=== PATIENT | male | born 1965 | race Caucasian/White ===

== ENCOUNTER 2021-09-01 15:38 | Outpatient (REF) | payer OTHER, SELFPAY ==
--- NOTE | ~2021-09-01 | XR_ITS ---
EXAMINATION: XR KNEE, LEFT CLINICAL INFORMATION: Left knee pain. COMPARISON: None. TECHNIQUE: 4 views of the left knee. FINDINGS: Tricompartmental degenerative changes are present with marked narrowing of the medial compartment with mild narrowing of the lateral compartment. Osteophytes are present bilaterally. There is some narrowing of the patellofemoral compartment. No joint effusion is seen. Six to 7 osseous bodies are present seen beneath the patella which may be loose bodies. Chondrocalcinosis is present with calcifications in the menisci. Two threaded screws are present, one in the tibia and one in the distal femur. XR/XR knee LT 3V IMPRESSION: Tricompartmental degenerative changes, worse in the medial compartment. Chondrocalcinosis is present along with possible loose osseous intra-articular bodies. Threaded screws as described above.
--- NOTE | ~2021-09-01 | XR_ITS ---
EXAMINATION: XR HIP, LEFT CLINICAL INFORMATION: Left hip pain. COMPARISON: None TECHNIQUE: Two views of the left hip. FINDINGS: No acute fractures or malalignment. The femoral heads are well-seated in the acetabula. Moderate degenerative osteoarthritis in both hips, greater on the left side with subcortical sclerosis, joint space narrowing and anterior osteophytes. Pelvic phlebolith. No unexpected radiopaque foreign bodies. XR/XR hip LT w PEL1V IMPRESSION: No acute fractures or malalignment. Moderate degenerative osteoarthritis in both hips, greater on the left side.
== END 2021-09-01 15:39 | disposition home or self-care (01) ==
LOC: HO.XRAY 15:38
PROVIDERS: Visit Provider Internal Medicine
DX: M25.562 Pain in left knee (principal); M25.552 Pain in left hip; G89.29 Other chronic pain; R05.8 Other specified cough
CPT/HCPCS: 73502; 73562

== ENCOUNTER 2022-05-10 06:40 | Outpatient (REF) | payer OTHER, SELFPAY ==
--- NOTE | ~2022-05-10 | XR_ITS ---
EXAMINATION: XR CHEST CLINICAL INFORMATION: R06.00 - Dyspnea, unspecified COMPARISON: None TECHNIQUE: Frontal view and 2 lateral views of the chest are obtained for a total of 3 views. FINDINGS: The lungs are clear. No pneumothorax, airspace consolidation, vascular congestion, or effusion. Heart size normal. The hilar and mediastinal contours are unremarkable. No acute bony abnormality. XR/XR chest 2V IMPRESSION: Unremarkable examination.
[2022-05-10 06:48] LABS: MANUAL DIFF FLAG NO
[2022-05-10 07:12] LABS: Basophils Absolute Auto 0.1 X10*3/uL (0.0-0.2); Eosinophils Absolute Auto 0.2 X10*3/uL (0.0-0.4); Eosinophils Percent Auto 2.6 % (0-4); Hematocrit 41.4 % (42.0-52.0); Hemoglobin 14.2 g/dl (14.0-18.0); Imm Gran Abs Auto 0.05 X10*3/uL (0.00-0.03); Imm Gran Pct Auto 0.8 % (0.0-0.4); Lymphocytes Absolute Auto 1.8 X10*3/uL (1.2-4.9); Lymphocytes Percent Auto 29.1 % (20-40); Mean Corpuscular HGB Conc 34.3 g/dl (31.0-36.0); Mean Corpuscular Hemoglobin 29.4 pg (27.0-33.0); Mean Corpuscular Volume 85.7 fL (80.0-98.0); Mean Platelet Volume 10.1 fL (9.4-12.4); Monocytes Absolute Auto 0.6 X10*3/uL (0.1-1.2); Monocytes Percent Auto 9.1 % (2-11); Neutrophils Absolute Auto 3.5 x10*3/uL (2.0-8.3); Neutrophils Percent Auto 57.4 % (45-73); Platelet Count 236 X10*3/uL (160-400); Red Blood Count 4.83 X10*6/uL (4.60-5.80); White Blood Count 6.2 X10*3/uL (4.8-10.8)
[2022-05-10 07:29] LABS: Alanine Aminotransferase 23 U/L (0-40); Albumin Level 4.4 g/dL (3.5-5.0); Alkaline Phosphatase 60 U/L (39-117); Anion Gap 9 (12-20); Aspartate Amino Transferase 20 U/L (5-37); Bilirubin Total 0.7 mg/dL (0.0-1.0); Blood Urea Nitrogen 16 mg/dL (9-16); Calcium 9.3 mg/dL (8.4-10.2); Carbon Dioxide 27 mmol/L (22-29); Chloride 108 mmol/L (96-108); Cholesterol 233 mg/dL; Estimated Glomerular Filt Rate > 60; Glucose Fasting 97 mg/dL (60-99); HDL Cholesterol 47 mg/dL; LDL Cholesterol Calculated 161 mg/dl; Potassium 4.3 mmol/L (3.3-5.1); Sodium 140 mmol/L (135-145); Total Protein 6.8 g/dL (6.5-8.0); Triglycerides 126 mg/dL
[2022-05-10 07:49] LABS: Prostate Specific Antigen 0.83 ng/mL (<0.05-4.0); TSH reflex Free T4 1.51 uIU/mL (0.32-4.0); Vitamin D 25-OH Total 19.9 ng/mL (>30)
[2022-05-10 08:57] LABS: Appearance Urine CLEAR; Color Urine YELLOW; Glucose Urine UA NEG (NEG); Leukocyte Esterase Urine NEG (NEG); Nitrite Urine NEG (NEG); Specific Gravity - Urine 1.025 (1.005-1.025); Urine Blood NEG (NEG); Urine Ketones NEG (NEG); Urine Protein NEG (NEG-TRACE)
== END 2022-05-10 06:41 | disposition home or self-care (01) ==
LOC: HO.XRAY 06:40
PROVIDERS: PCP Internal Medicine; Visit Provider Internal Medicine
DX: Z00.00 Encounter for general adult medical examination without abnormal findings (principal); Z12.5 Encounter for screening for malignant neoplasm of prostate; E55.9 Vitamin D deficiency, unspecified; N40.0 Benign prostatic hyperplasia without lower urinary tract symptoms; R06.00 Dyspnea, unspecified
CPT/HCPCS: 36415; 71046; 80053; 80061; 81003; 82306; 84153; 84443; 85025

== ENCOUNTER → 2022-07-03 14:54 | Outpatient (BNVA) | payer OTHER, SELFPAY | PROVIDERS: PCP Internal Medicine; Referring Provider Internal Medicine; Visit Provider Internal Medicine | DX: Z01.810 Encounter for preprocedural cardiovascular examination (principal); I49.9 Cardiac arrhythmia, unspecified; R06.02 Shortness of breath | CPT/HCPCS: 93005 ==

== ENCOUNTER → 2022-08-08 08:14 | Outpatient (REF) | payer OTHER, SELFPAY ==
--- NOTE | 2022-08-08 08:17 | HM_ITS ---
Conclusion: 1. Patient was monitored for total period of 2 days and 10 hours 2. Baseline rhythm was normal sinus rhythm with average heart rate of 79 beats per minute 3. No significant pauses or bradycardia noted 4. Very rare PVCs noted 5. Rare PACs noted with multiple 4-5 beat run of SVT, fastest at 151 beats per minute 6. Patient marked 1 event without symptoms correlated with sinus rhythm MTDD
--- NOTE | 2022-08-08 08:17 | CA_ITS ---
Transthoracic Echocardiogram Patient (Last, First, Middle): Ghislaine Kim J Gender: Male Date of : 1965 Age: 57 Procedure Date: 08/08/2022 Procedure Type: Transthoracic Echocardiogram Location: OP Height: 195.58 cm Weight: 106.6 kg BSA: 2.40 m2 Heart Rate: 55 bpm BP: 130 / 68 mmHg Furniture Finisher: SB Referring MD: Indio Hammonds MD Symptoms: R06.02 - Shortness of breath Study Quality: Adequate ECG Rhythm: Bradycardia Conclusions: - The left ventricular systolic function is normal. The calculated ejection fraction is 64% by biplane method. - There is severe septal asymmetric hypertrophy. - The right atrium is moderately dilated. - There is mild calcification of the aortic valve. Findings Left Ventricle Normal left ventricular cavity size. There is mildly increased left ventricular wall thickness. The left ventricular systolic function is normal. The calculated ejection fraction is 64% by biplane method. There is no evidence of regional wall motion abnormalities. There is severe septal asymmetric hypertrophy. LV peak GLS -17.6%. Right Ventricle Mildly increased right ventricular cavity size. There is normal right ventricular systolic function. Atria The left atrium is normal in size. The right atrium is moderately dilated. Aortic Valve There is a normal trileaflet aortic valve. There is mild calcification of the aortic valve. There is no aortic valve stenosis. There is trace (trivial) aortic valve regurgitation. Mitral Valve The mitral valve appears normal. There is trace mitral valve regurgitation. There is no mitral valve stenosis. Pulmonic Valve The pulmonic valve is likely normal. Tricuspid Valve Normal tricuspid valve structure. There is trace tricuspid valve regurgitation. There is no evidence of pulmonary hypertension. Great Vessels The asc aorta is normal in size. Venous The inferior vena cava is normal in size and collapses greater than 50% with inspiration. Pericardium/Pleural There is no evidence of pericardial effusion. Prior Study Comparison Changes noted compared to prior study dated: 10/29/2018. Increase in septal thickness. Recommendations, Care & Conclusions No obvious valvular pathology seen on this study. Measurements 2D Linear Measurements IVSd: 1.56 0.6-0.9/0.6-1.0 cm LVIDd: 4.62 3.9-5.3/4.2-5.9 cm LVIDd Index: 1.93 2.4-3.2/2.2-3.1 cm/m2 LVIDs: 2.72 2.0-3.6 cm LVPWd: 1.16 0.7-1.1 cm LA Diam: 3.70 2.7-3.8/3.0-4.0 cm LAIDs Index: 1.54 1.5-2.3 cm/m2 LV Mass: 308.71 67-162/88-224 g LV Mass Index: 128.63 43-95/49-115 g/m2 LVOT Diam: 2.30 3.0+(-)1.3 cm 2D Systolic Function EF 4C: 61.40 >55% EF 2C: 70.20 >55% EF BiP: 63.70 >55% Mitral Valve MV Pk E: 0.70 MV PK A: 0.63 MV Decel Time: 271.00 E/A: 1.10 E'Lateral: 8.59 E'Medial: 6.09 E/E' Med: 11.50 E/E' Lat: 8.20 PHT: 79.00 MVA PHT: 2.78 Decel Stutsman: 2.59 Aortic Valve AoV Pk Neri: 1.56 AoV Mn Neri: 1.14 AoV VTI: 0.35 AoV Pk Grad: 10.00 Aov Mn Grad: 6.00 PERRY Cont.VTI: 3.64 LVOT LVOT Pk Neri: 1.48 LVOT Mn Neri: 1.10 LVOT VTI: 0.31 LVOT Pk Grad: 9.00 LVOT Mn Grad: 5.00 LVOT Diam: 2.30 LVOT Area: 4.15 Diastolic Function MV Pk E: 0.70 MV Pk A: 0.63 E/A: 1.10 E'Medial: 6.09 E/E' Med: 11.50 E' Laterial: 8.59 E/E' Lat: 8.20 Right Ventricle TAPSE (mm): 18.90 TVS' Neri: 12.00 Tricuspid Valve TR Pk Neri: 2.12 TR Pk Grad: 18.00 RA Press: 3.00 RVSP: 21.00 Great Vessels Aorta Sinus of Valsalva: 3.80 2.0-3.5 cm Ao Asc: 3.70 2.1-3.4 cm Pulmonary Veins Pulm Vein S/D 1.50 Pulmonary Valve PV Pk Neri: 0.98 Peak PV Grad: 4.00 Updated in Other Vendor System with Status of Final Indio Hammonds MD electronically signed on 08/08/2022 2:59:58 PM with status of Final
== END ==
LOC: HO.CARD 08:14
PROVIDERS: PCP Internal Medicine; Visit Provider Internal Medicine
DX: I49.9 Cardiac arrhythmia, unspecified (principal); R06.02 Shortness of breath
CPT/HCPCS: 93242; 93306; 93356

== ENCOUNTER → 2022-08-29 08:54 | Outpatient (REF) | payer OTHER, SELFPAY ==
--- NOTE | 2022-08-29 08:57 | CA_ITS ---
Acquisition Time: 2022-08-29 10:03:59 Total Exercise Time: 00:10:00 Test Indications: Atrial premature depolarization Medications: See H Protocol: STEFAN Max HR: 166 BPM 101% of Pred: 163 BPM Max BP: 166/086 mmHG Max Work Load: 11.7 METS Exercise stress test with exercise 10 min of Stefan protocol, achieving 101% MPHR, with mild sob, no chest discomfort, with isolated PVCs, with normotensive response to exercise, with EKG changes meeting criteria for ischemia: upsloping ST depression inferiorly, horizontal ST depression up to 3 mm in V4-V6 with gradual improvement in recovery. EKG tracings and report reviewed with Dr Hammonds. Referred By: Sherry Zuluaga Overread By: SHERRY ZULUAGA
== END ==
LOC: HO.CARD 08:54
PROVIDERS: Visit Provider Nurse Practitioner Family
DX: Z01.810 Encounter for preprocedural cardiovascular examination (principal); I49.1 Atrial premature depolarization; I42.2 Other hypertrophic cardiomyopathy
CPT/HCPCS: 93017

== ENCOUNTER 2022-09-20 15:54 | Outpatient (REF) | payer OTHER, SELFPAY ==
[2022-09-20 17:45] LABS: Anion Gap 9 (12-20); Blood Urea Nitrogen 16 mg/dL (9-16); Calcium 9.2 mg/dL (8.4-10.2); Carbon Dioxide 28 mmol/L (22-29); Chloride 104 mmol/L (96-108); Estimated Glomerular Filt Rate > 60; Glucose Random 85 mg/dL (60-115); Sodium 137 mmol/L (135-145)
== END 2022-09-20 15:55 | disposition home or self-care (01) ==
LOC: HO.LAB 15:54
PROVIDERS: PCP Internal Medicine; Visit Provider Nurse Practitioner Family
DX: I42.2 Other hypertrophic cardiomyopathy (principal); I49.9 Cardiac arrhythmia, unspecified; Z83.49 Family history of other endocrine, nutritional and metabolic diseases; I42.9 Cardiomyopathy, unspecified
CPT/HCPCS: 36415; 80048

== ENCOUNTER → 2022-12-11 14:50 | Outpatient (BNVA) | payer OTHER, SELFPAY | PROVIDERS: PCP Internal Medicine; Referring Provider Internal Medicine; Visit Provider Internal Medicine | DX: Z13.89 Encounter for screening for other disorder (principal) ==

== ENCOUNTER 2023-02-19 08:51 | Day surgery (SDC) | payer OTHER, SELFPAY ==
[2023-02-15 09:25] VITALS: BMI 27.2
--- NOTE | 2023-02-18 13:04 | P.CONAN_ITS ---
HPI - Anesthesia Eval Consult details Narrative: 58yo M for Colonoscopy Cardiac optimized [facility] Active Problems Active Problems: All Active Problems (Updated 12/11/22 @ 16:10 by Indio Hammonds MD) Chronic left hip pain (Acute) Chronic pain of left knee (Acute) Recurrent cough (Acute) Elevated blood pressure reading (Acute) Annual physical exam (Acute) Dyspnea (Acute) Colon cancer screening (Acute) Irregular heart beat (Acute) Cardiac arrhythmia, unspecified (Acute) Preoperative cardiovascular examination (Acute) PAC (premature atrial contraction) (Acute) Asymmetric septal hypertrophy (Acute) Family history of amyloidosis (Acute) Hypertrophic cardiomyopathy (Acute) Overweight (BMI 25.0-29.9) (Acute) Past Medical History Medical History Arthritis Hypertrophic cardiomyopathy Overweight (BMI 25.0-29.9) Family History Family History Mother No problems noted. Father Amyloidosis Surgical History Surgical History History of left knee surgery History of right knee surgery History of rotator cuff surgery Social History Social History Household Members Other:: grandson Housing: House Are you a primary residential care facility manager to a significant other at home: Yes Do you presently have visiting nurse or other home services: No Alcohol intake: former Patient Tobacco Use Status: Never used Tobacco Second Hand Smoke Exposure: Yes service: No Current occupational status: employed Cognitive needs: No Hearing needs: No Vision needs: No Meds Allergies Allergy/AdvReac Type Severity Reaction Status Date / Time No Known Allergies Allergy Verified 02/19/23 09:44 Home Medications Medication Instructions Recorded Confirmed Last Taken Type ibuprofen 800 mg tablet 800 mg PO DAILY 08/22/22 02/15/23 02/15/23 History Exam Exam Date and Time: February 18, 2023 1304 Height,Weight and Vital Signs: Height 6 ft 5 in Weight 104.326 kg Pertinent Lab Results Pertinent Lab Results: Laboratory Tests 09/20/22 16:09 Sodium 137 Potassium 4.0 Chloride 104 Carbon Dioxide 28 BUN 16 Creatinine 1.02 Narrative Narrative: Echocardiogram with LVEF of 65%.? Severe septal hypertrophy.? Moderately dilated right atrium.? Mild aortic valve calcification. Cardiac MRI with LVEF of 69%; severe septal hypertrophy with maximum diameter VD mm.? Dilated atria.? Delayed enhancement overall, less than 5% of total myocardium.? In the mid inferior septum/anterior septum much more prominent at 50-75% of myocardial thickness. In the exercise stress test, he was able to court for 11.7 Mets on Ozzy protocol.? 101% of max predicted heart rate; EKG changes meeting criteria for ischemia but no angina whatsoever.? Likely not suggestive of ischemia overall. Holter with underlying sinus rhythm, rare PVCs, PACs. Assessment and Plan Assessment Anesthesia Assessment: Chart Reviewed
[2023-02-19 09:59] VITALS: BP 143/93; PULSE 60; RESP 15; TEMP 36.8; O2SAT 97
[2023-02-19] MEDS: Lactated Ringers 1,000 ML 50 ML IVCONT (10:08)
--- NOTE | 2023-02-19 10:43 | MHC.SHP ---
Pre-Procedural Eval Section A Date of Service: 02/19/23 Section B Chief Complaint: screening Relevant Family History (Specify if Yes): No Relevant Social History: None Present Medications: see Short Stay Collaborative assessment Medical History: Significant History (Arthritis Overweight (BMI 25.0-29.9)) History of Previous Operations: Relevant previous surgery/procedure and date(s) (History of left knee surgery History of right knee surgery History of rotator cuff surgery) Allergies: Allergies Allergy/AdvReac Type Severity Reaction Status Date / Time No Known Allergies Allergy Verified 02/19/23 09:44 Review of Systems Sugical H&P ROS: Negative: Constitution, Cardiovascular, Respiratory, Neurological, Psychiatric, Hem-Onc, Allergic/Immunologic, Gastrointestinal, Genitourinary, Musculoskeletal, Integumentary, Endocrine and Eyes/Ears/Nose/Throat Exam Surgical H&P Exam: Normal: HEENT, Normal: Heart, Normal: Lungs, Normal: Extremities, Normal: Abdomen, Normal: Skin and Normal: Neurological Plan Diagnosis/Plan: Unchanged I have reviewed the history and physical and performed a pertinent physical examination on my patient. No changes have occurred unless specified. Time Spent With Patient Time: Total time managing care of this patient today ____ minutes.
--- NOTE | 2023-02-19 10:44 | W.PM.OPN ---
Operative Note Operative Note Date of Service: 02/19/23 Narrative: Operative Information Procedure Description: Colonoscopy Indication: screening Anesthesia: MAC COLONOSCOPY Instrument: Olympus variable stiffness ADULT scope 190L Colonoscopy Monitoring: Vital signs and clinical assessment, continuous EKG monitoring, Pulse oximetry, Carbon Dioxide monitoring and blood pressure monitoring were done throughout the procedure. Colon withdrawal time was 7 minutes. Procedure: The patient was placed in the left lateral decubitis position and pre-procedure medications were administered. After a digital rectal examination of the ano-rectum, the video colonoscope was inserted into the rectum and advanced through the colon to the cecum/TI. The colonoscope was slowly withdrawn in a retrograde panoramic fashion and the colon mucosa was carefully examined including a retroflexed view of the rectum. Findings and interventions are described below. Procedure Difficulty: moderate due to tortuous colon, Findings: Terminal Ileum-normal Cecum:normal Ascending Colon: normal Transverse Colon -normal Descending Colon:normal Sigmoid Colon: moderate diverticulosis Rectum: Retroflexion with small internal hemorrhoids, grade I Anorectum - normal Colon preparation: [place] Bowel Preparation Scale Right colon; 2 Transverse colon: 2 Left colon; 2 (0 = Unprepared colon segment with mucosa not seen due to solid stool that cannot be cleared. 1 = Portion of mucosa of the colon segment seen, but other areas of the colon segment not well seen due to staining, residual stool and/or opaque liquid. 2 = Minor amount of residual staining, small fragments of stool and/or opaque liquid, but mucosa of colon segment seen well. 3 = Entire mucosa of colon segment seen well with no residual staining, small fragments of stool or opaque liquid) Impression and Post Procedure Diagnosis: redundant colon internal hemorrhoids Plan: High fiber diet leaflet Avoid straining at stool, epsom salts and sitz bath, anusol supps or cream Repeat Colonoscopy in 10 years or earlier if clinically indicated Above findings were reviewed with the patient and relevant handouts were provided if indicated.
--- NOTE | 2023-02-19 10:55 | P.CONAN_ITS ---
[facility] Active Problems Active Problems: All Active Problems (Updated 02/19/23 @ 09:52 by Leann Webster RN) Chronic left hip pain (Acute) Chronic pain of left knee (Acute) Recurrent cough (Acute) Elevated blood pressure reading (Acute) Annual physical exam (Acute) Dyspnea (Acute) Colon cancer screening (Acute) Irregular heart beat (Acute) Cardiac arrhythmia, unspecified (Acute) Preoperative cardiovascular examination (Acute) PAC (premature atrial contraction) (Acute) Asymmetric septal hypertrophy (Acute) Family history of amyloidosis (Acute) Hypertrophic cardiomyopathy (Acute) Overweight (BMI 25.0-29.9) (Acute) Past Medical History Medical History Arthritis Hypertrophic cardiomyopathy Overweight (BMI 25.0-29.9) Family History Family History Mother No problems noted. Father Amyloidosis Surgical History Surgical History History of left knee surgery History of right knee surgery History of rotator cuff surgery Social History Social History Household Members Other:: grandson Housing: House Are you a primary managed care specialist to a significant other at home: Yes Do you presently have visiting nurse or other home services: No Alcohol intake: former Patient Tobacco Use Status: Never used Tobacco Second Hand Smoke Exposure: Yes service: No Current occupational status: employed Cognitive needs: No Hearing needs: No Vision needs: No Meds Allergies Allergy/AdvReac Type Severity Reaction Status Date / Time No Known Allergies Allergy Verified 02/19/23 09:44 Active Medications: Current Medications Lactated Ringer's (Lr) 1,000 mls @ 50 mls/hr IVCONT .Q20H ROSEMARY Last Admin: 02/19/23 10:08 Dose: 50 mls/hr Home Medications Medication Instructions Recorded Confirmed Last Taken Type ibuprofen 800 mg tablet 800 mg PO DAILY 08/22/22 02/15/23 02/15/23 History Exam Exam Date and Time: February 19, 2023 1055 Height,Weight and Vital Signs: Height 6 ft 5 in Weight 104.326 kg Last Vital Signs Temp 98.2 F 02/19/23 09:59 Pulse 60 02/19/23 09:59 Resp 15 02/19/23 09:59 BP 143/93 H 02/19/23 09:59 Pulse Ox 97 02/19/23 09:59 O2 Del Method Room Air 02/19/23 09:59 Airway Mallampati Class: II TM Dist: >3cm Neck ROM: Full Lungs: CTA Assessment and Plan Final Anesthetic Review NPO: Yes ASA Class: II Final Preanesthetic Review: Meds/Allgs Chart Reviewed, Consent Obtained/Reviewed and Anes Risks/Benef Reviewed Anesthetic Plan Anesthetic Plan: MAC: Disposition: Standard PACU
[2023-02-19 11:22] VITALS: BP 103/73; PULSE 61; RESP 20; TEMP 36.3
[2023-02-19 11:38] VITALS: BP 124/81; PULSE 58; RESP 29; TEMP 36.2
--- NOTE | 2023-02-19 12:27 | HO.POSTANES ---
Post Anesthesia Evaluation Post Anesthesia Evaluation Vital Signs: Vital Signs Temp Pulse Resp BP Pulse Ox O2 Del Method O2 Flow Rate 02/19/23 11:38 97.1 F 58 29 H 124/81 Room Air 02/19/23 11:22 97.3 F 61 20 103/73 Simple Mask 6 02/19/23 09:59 98.2 F 60 15 143/93 H 97 Room Air Anesthesia: Monitored Mental Status: Awake Pain Control: Satisfactory Nausea/Vomiting: None Hydration: Adequate Anesthesia-Related Issues: No Anes. Related Issues
== END 2023-02-19 12:22 | disposition home or self-care (01) ==
PROVIDERS: PCP Internal Medicine; Visit Provider Internal Medicine Gastroenterology
PROC: 0DJD8ZZ Inspection of Lower Intestinal Tract, Via Natural or Artificial Opening Endoscopic (ICD-10-PCS; CPT 45378; principal; 2023-02-19 10:40)
DX: Z12.11 Encounter for screening for malignant neoplasm of colon (principal); K57.30 Diverticulosis of large intestine without perforation or abscess without bleeding; K64.0 First degree hemorrhoids; K56.2 Volvulus; I42.2 Other hypertrophic cardiomyopathy; E66.9 Obesity, unspecified; Z68.26 Body mass index [BMI] 26.0-26.9, adult; M19.90 Unspecified osteoarthritis, unspecified site; Z79.1 Long term (current) use of non-steroidal anti-inflammatories (NSAID)
CPT/HCPCS: 45378

== ENCOUNTER 2023-06-13 13:35 | Outpatient (AMB) | payer OTHER, SELFPAY ==
--- NOTE | 2023-06-13 13:42 | A.OFFVIS_ITS ---
Intake Vital Signs 06/13/23 13:43 Height 6 ft 5 in Weight 235 lb 14.314 oz BMI 28.0 BP 124/86 Blood Pressure Location Lt brachial Position Sitting Pulse 62 Intake Visit Reasons: 6 mth f/up Intake Note: 6 month follow up w/ EKG Printing Services Coordinator Required: No Accompanied by: Self / Same As Patient Allergies No Known Allergies Allergy (Verified 06/13/23 13:44) Medication List - Last Reconciled 06/13/23 by Indio Hammonds MD ibuprofen 800 mg PO DAILY HPI HPI Comments History of Present Illness Details Ghislaine returns for follow-up. Originally referred for evaluation of possible abnormal heart rhythm during screening colonoscopy. Following this, he underwent workup that showed evidence of septal hypertrophy on echocardiogram. This led to a cardiac MRI that he recently completed. Most of the time, he feels fine. Extremely active with minimal limitations if any. Only during times of high humidity, he states he can feel a bit short of breath but that is very rare. Apparently, father has amyloidosis. 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 Patient confirms this information as well. [facility] Medical History Arthritis Hypertrophic cardiomyopathy Overweight (BMI 25.0-29.9) Surgical History History of left knee surgery History of right knee surgery History of rotator cuff surgery Family History Mother No problems noted. Father Amyloidosis Social History Household Members Other:: grandson Housing: House Are you a primary direct care staffer to a significant other at home: Yes Do you presently have visiting nurse or other home services: No Alcohol intake: former Patient Tobacco Use Status: Never used Tobacco Second Hand Smoke Exposure: Yes service: No Current occupational status: employed Cognitive needs: No Hearing needs: No Vision needs: No Review of Systems Const Denies weakness ENT Denies dizziness Card Denies chest pain, Denies chest pain with activity, Denies syncope, Denies rapid heart rate, Denies pedal edema, Denies edema, Denies leg edema, Denies lightheadedness, Denies palpitations, Denies dyspnea, Denies dyspnea on exertion and Denies orthopnea Resp Denies cough, Denies dyspnea and Denies dyspnea on exertion GI Denies hematochezia and Denies change in stool character Musc Denies abnormal gait, Denies muscle cramps, Denies muscle weakness, Denies numbness, Denies radiating pain into limb and Denies tingling Neuro Denies abnormal gait, Denies dizziness, Denies syncope, Denies numbness, Denies tingling and Denies weakness Endo Denies palpitations Physical Exam Vital Signs: Last Vital Signs Pulse 62 06/13/23 13:43 BP 124/86 06/13/23 13:43 BMI result Body Mass Index 28.0 Const General: comfortable and no acute distress Orientation/consciousness: patient oriented x3 HEENT Other: Unremarkable Head: Yes normal to inspection Neck Neck: Yes normal visual inspection Chest Chest palpation & inspection: normal inspection of the chest Resp Auscultation: clear to auscultation bilaterally Cardio Palpation: normal PMI Heart sounds: S1 normal heart sound present, S2 normal heart sound present, no gallops, no murmurs and no rubs GI Palpation (GI): Soft to palpation Back/Spine/Pelvis Other: unremarkable Skin General skin exam: no rashes or lesions noted Neuro General: patient oriented x3 Extrem General: Yes normal to inspection Psych Mental Status: mental status grossly normal Office Procedures EKG Details: EKG with sinus rhythm at 62/Min; possible left atrial enlargement; left ventricular hypertrophy; [place]. [id number], Complete Assessment & Plan Assessment & Plan (1) Hypertrophic cardiomyopathy: Code(s): I42.2 - Other hypertrophic cardiomyopathy Plan Cardiac studies reviewed. Echocardiogram with LVEF of 65%. Severe septal hypertrophy. Moderately dilated right atrium. Mild aortic valve calcification. Cardiac MRI with LVEF of 69%; severe septal hypertrophy with maximum diameter 18mm. Dilated atria. Delayed enhancement overall, less than 5% of total myocardium. In the mid inferior septum/anterior septum much more prominent at 50-75% of myocardial thickness. In the exercise stress test, he was able to do 11.7 Mets on Ozzy protocol. 101% of max predicted heart rate; EKG changes meeting criteria for ischemia but no angina whatsoever. Likely not suggestive of ischemia overall. Holter with underlying sinus rhythm, rare PVCs, PACs. Overall, clear evidence of hypertrophic cardiomyopathy based on above imaging including cardiac MRI. Again discussed about the condition in great detail. Illustrations also shown. Natural course, treatment options discussed. He has got absolutely no symptoms and hence no specific intervention at this time. Again discussed about genetics and if he is willing, we can refer. He is not sure. Discussed about family screening and his children can get an echocardiogram. He will call us with ongoing concerns. Follow up in 1 year. Orders: Orders CA echo transthoracic complete 51 Weeks I42.2 - Other hypertrophic cardiomyopathy Coding Level of Care Code Est Pt Level 4 (52031) Diagnoses Hypertrophic cardiomyopathy I42.2 CPT Codes EKG - CPT: 76653-[id number], Complete ([id number])
[2023-06-13 13:43] VITALS: BP 124/86; PULSE 62; BMI 28.0
== END 2023-06-13 14:05 | disposition home or self-care (01) ==
PROVIDERS: PCP Internal Medicine; Referring Provider Internal Medicine; Visit Provider Internal Medicine
DX: I42.2 Other hypertrophic cardiomyopathy (principal)
CPT/HCPCS: 93010; 99214

== ENCOUNTER → 2023-06-13 13:35 | Outpatient (BNVA) | payer OTHER, SELFPAY | PROVIDERS: PCP Internal Medicine; Referring Provider Internal Medicine; Visit Provider Internal Medicine | DX: I42.2 Other hypertrophic cardiomyopathy (principal) | CPT/HCPCS: 93005 ==

== ENCOUNTER 2024-02-12 15:30 | Outpatient (AMB) | payer OTHER, SELFPAY ==
--- NOTE | 2024-02-12 15:41 | A.OFFPC_ITS ---
Vital Signs 02/12/24 15:44 Height 6 ft 5 in Weight 236 lb 2 oz BMI 28.0 BP 124/70 Blood Pressure Location Lt brachial Position Sitting Pulse 64 Pulse Source Pulse Oximeter Pulse Oximetry (%) 97 Oxygen Delivery Method Room Air Intake Visit Reasons: ANNUAL PE Intake Note: Patient is here today for a physical. Optical Fabrication Technician Required: No Legal Researcher: Not Required per policy Accompanied by: Self / Same As Patient Allergies No Known Allergies Allergy (Verified 02/12/24 16:32) Medication List - Last Reconciled 02/12/24 by Chan Phillips MD ibuprofen 800 mg PO DAILY Tobacco use date assessed: 02/12/24 Dental Screening Dental Screen Date: 02/12/24 Did you have a dental visit in the last 12 months?: No Did you have a dental problem in the last 6 months where you did not have access to dental care?: No Was dental information given to patient?: No HPI ANNUAL PE HPI Details Patient comes in today for his annual physical examination - was last seen in March 2022 States that he currently feels okay He denies any headaches or dizziness Denies any chest pains, still has on and off CARO but states that his breathing is otherwise okay and he has no significant limitations in doing any of his daily activities No nausea/vomiting, no abdominal pain No change in bowel habits noted He denies any acute urinary symptoms He had his screening colonoscopy done last year (02/2023) which came out normal and he was advised that he will need repeat colonoscopy in 10 years Of note, he was referred by GI to cardiology when they apparently heard some 'abnormality' in his heart rate when they saw him for a precolonoscopy visit He was then seen by cardiology and had an in-office EKG done, which came out normal He was then sent for echocardiogram and Holter monitor for further evaluation Echocardiogram revealed (+) severe septal asymmetric hypertrophy; the right atrium is moderately dilated and there is mild calcification of the aortic valve. The left ventricular systolic function is otherwise normal, with a calculated ejection fraction of 64% Holter monitor revealed baseline normal sinus rhythm with an average heart rate of 79 beats per minute, with no significant pauses or bradycardia, very rare PVCs and rare PACs noted with multiple 4-5 beat run of SVT, fastest at 151 beats per minute He also had stress testing done and he was able to do 11.7 Mets on Ozzy protocol with 101% of max predicted heart rate; EKG changes meeting criteria for ischemia but no angina whatsoever. Likely not suggestive of ischemia overall Cardiac MRI revealed LVEF of 69%, severe septal hypertrophy with maximum diameter VD mm. Dilated atria. Delayed enhancement overall, less than 5% of total myocardium. In the mid inferior septum/anterior septum much more prominent at 50-75% of myocardial thickness He has been advised by cardiology of his condition and overall prognosis and as he currently has no concerning symptoms and no significant limitations with his activities and ADLs, will continue to observe him for now and he will get a follow up echocardiogram in a year's time - will be scheduled for his repeat echocardiogram later this fall (2023) [facility] Medical History Hypertrophic cardiomyopathy Overweight (BMI 25.0-29.9) Arthritis Surgical History History of rotator cuff surgery History of right knee surgery History of left knee surgery Family History Mother No problems noted. 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 1. Little interest or pleasure in doing things: not at all 2. Feeling down, depressed, or hopeless: not at all 3. Trouble falling or staying asleep, or sleeping too much: not at all 4. Feeling tired or having little energy: not at all 5. Poor appetite or overeating: not at all 6. Feeling bad about yourself - or that you are a failure or have let yourself or your family down: not at all 7. Trouble concentrating on things, such as reading the newspaper or watching television: not at all 8. Moving or speaking so slowly that other people could have noticed. Or the opposite - being so fidgety or restless that you have been moving around a lot more than usual: not at all 9. Thoughts that you would be better off or of hurting yourself in some way: not at all Total score: 0 Depression Screening Interpretation: Negative Depression Screening Done: Yes 39220 - PHQ-9 Billing: Yes Source: Developed by Drs. Leland Anand, Yandy Purvis, Jose Hill and colleagues, with an educational loli from [employer]. Thrive Questionnaire Date Thrive assessed: 02/12/24 I am a: Patient What is your living situation today?: I have a steady place to live Within the past 12 months, did the food you bought not last and you didn't have the money to get more?: Never true Within the past 12 months, did you worry whether your food would run out before you got money to buy more?: Never true Do you have trouble paying for medicines?: No Do you have trouble getting transportation to medical appointments?: No Do you have trouble paying your heating and electricity bill?: No Do you have trouble taking care of your child, family member or friend?: No Do you have trouble with day-to-day activities such as bathing, preparing meals, shopping, managing finances, etc.?: No Are you currently unemployed and looking for a job?: No Are you interested in more education?: No Currently or been in a relationship where the following occur: no concerns reported THRIVE Score: 0 AUDIT C Alcohol Use Questionnaire (AUDIT-C) 1. How often do you have a drink containing alcohol?: Never 3. How often do you have six or more drinks on one occasion?: Never Total Score: 0 Score Reviewed/Action Taken: Yes MICHAEL-7 AMB Questionnaire MICHAEL-7 Date MICHAEL - 7 assessed: 02/12/24 Feeling nervous, anxious, or on edge: 0 = Not at all Not being able to stop or control worryin = Not at all Worrying too much about different things: 0 = Not at all Trouble relaxin = Not at all Being so restless that it is hard to sit still: 0 = Not at all Becoming easily annoyed or irritable: 0 = Not at all Feeling afraid as if something awful might happen: 0 = Not at all Total MICHAEL-7 score (0-4 normal; 5-9 mild; 10-14 moderate; 15-21 severe): 0 Source: Developed by Drs. Leland Anand, Yandy Purvis, Jose Hill and colleagues, with an educational loli from [employer]. Review of Systems Const Denies chills, Reports difficulty sleeping (states that he's had trouble sleeping since passed from COVID 2 yr ago), Denies fatigue, Denies fever(s), Denies headache(s), Denies malaise and Denies weakness Eyes Denies blurry vision, Denies change in vision, Denies irritation and Denies itchy eyes ENT Denies dysphagia, Denies dizziness, Denies otalgia, Denies headache(s), Denies nasal congestion, Denies neck pain, Denies odynophagia and Denies sore throat Card Denies chest pain, Denies rapid heart rate, Denies irregular heart rhythm, Denies palpitations and Reports dyspnea on exertion (occasionally/rarely; mostly mild when he does get them) Resp Denies chest congestion, Denies cough, Reports dyspnea on exertion (occasionally/rarely; mostly mild when he does get them) and Denies wheezing GI Denies abdominal pain, Denies bloating, Denies constipation, Denies dysphagia, Denies heartburn, Denies diarrhea, Denies nausea, Denies odynophagia and Denies vomiting Denies hematuria, Denies difficulty urinating, Denies dysuria, Denies urinary frequency and Denies urinary urgency Musc Denies back pain, Denies arthralgias, Denies joint swelling, Denies muscle weakness and Denies neck pain Skin/Breast Denies change in pigmentation, Denies lesions, Denies rash and Denies unusual b ruising Neuro Denies dizziness, Denies headache(s), Denies paresthesias and Denies weakness Endo Denies fatigue and Denies palpitations Aller/Immun Denies itchy eyes and Denies wheezing Physical exam (Primary Care) Vital Signs: Last Vital Signs Pulse 64 02/12/24 15:44 BP 124/70 02/12/24 15:44 Pulse Ox 97 02/12/24 15:44 Oxygen Delivery Method Room Air 02/12/24 15:44 BMI result Body Mass Index 28.0 Tobacco/Smoking Status: Tobacco use Status Tobacco use date assessed 02/12/24 02/12/24 15:48 Patient Tobacco Use Status Never used Tobacco 02/12/24 15:48 e-Cigarette/Vaping Use Never Used 02/12/24 15:48 PHQ-9: PHQ-9 Score PHQ-9: Total score 0 02/12/24 16:37 Depression Screening Interpretation: Negative Thrive Assessment: Date of Thrive Assessment Date Thrive assessed 02/12/24 02/12/24 15:48 Currently or been in a relationship where the following occur: no concerns reported Const General: no acute distress, alert and awake Orientation/consciousness: patient oriented x3 HENMT Head: Yes normocephalic and Yes atraumatic Ears: external ears normal, TM's normal bilaterally and EAC's normal General nose exam: No nasal discharge present Face and sinus: Yes normal facial exam and Yes sinuses nontender Teeth and gingiva: dentition normal Throat: Yes posterior oropharynx normal and Yes tonsils normal (no TP congestion) Eyes Eyelids: Yes eyelids normal Conjunctivae: conjunctivae normal Pupils: Equal, round and reactive pupils present EOM: EOMs intact bilaterally Neck Neck: Yes no lymphadenopathy and Yes supple Thyroid: Thyroid normal Resp Auscultation: clear to auscultation bilaterally, no rales and no wheezes Cardio Rate: regular rate Rhythm: regular rhythm Heart sounds: Murmur heart sound present systolic early, II/ and at the apex GI Palpation (GI): Soft to palpation, nontender and No hepatosplenomegaly present Auscultation: normal bowel sounds General: Yes no CVA tenderness Back/Spine/Pelvis Back: no CVA tenderness Thoracic/Lumbar Spine: thoracic and lumbar spine normal to inspection Skin Lesions: no lesions Rashes: no rashes Neuro General: patient oriented x3, moves all extremities, no focal motor deficits and CN's II-XI intact bilaterally Cranial nerves: Yes Equal, round and reactive pupils present Cognition (Neuro): normal cognition Gait exam (Neuro): Normal gait present Extrem General: Yes no clubbing, cyanosis or edema Assessment and Plan Assessment & Plan (1) Annual physical exam: Code(s): Z00.00 - Encounter for general adult medical examination without abnormal findings Plan: Check labs - he is advised that we will reach out to him if any of his labs come back with unusual or unexpected results He is up-to-date with his colon cancer screening - done in 02/2023 and he was recommended to get his repeat colonoscopy in 10 years (2) Hypertrophic cardiomyopathy: Code(s): I42.2 - Other hypertrophic cardiomyopathy Plan: This was discovered when he was found to have an abnormal cardiac rhythm when seen by GI for precolonoscopy visit and he was referred to cardiology, after which he had work ups done (see HPI) and was discovered to have severe septal hypertrophy Relates that his father has a history transthyretin cardiomyopathy, wild-type and has been following up at the [facility] and undergoing experimental treatment(s) for his condition Per records that he has brought in to cardiology previously, his father had cardiac Bx done in 2016 that showed that the type of amyloidosis that he has is NON-genetic Nonetheless, he has been advised by cardiology that he should still pursue genetic screening on himself and that his children should also be screened and tested at some point and he is currently still deciding on this As he currently has no significant symptoms and does not appear to be affected or limited at all in terms of his activity tolerance/daily activities, he will continue to be observed for now with no specific interventions needed at this time He will be going for a follow up echocardiogram later this fall and will continue to see cardiology regularly for follow up (3) Arthralgia of hands, bilateral: Code(s): M25.541 - Pain in joints of right hand; M25.542 - Pain in joints of left hand Plan: States that he routinely takes Ibuprofen 800 mg QD in the morning or he will not be able to use his hands and work (due to pain) Discussed that he likely has osteoarthritis of both hands 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 Patient states that he does go to see orthopedics at [facility] over the years for his joint pains Is advised to call if he feels that his hand symptoms are progressing and Ibuprofen is no longer helping him adequately (4) Overweight (BMI 25.0-29.9): Code(s): E66.3 - Overweight Plan: Reinforced diet/exercise as tolerated/lose weight Plan To return in 1 year for his next annual physical examination Orders: Orders Complete Blood Count Auto Diff 02/12/24 D64.9 - Anemia, unspecified, Z00.00 - Encounter for general adult medical examination without abnormal findings TSH reflex Free T4 02/12/24 E78.00 - Pure hypercholesterolemia, unspecified, Z00.00 - Encounter for general adult medical examination without abnormal findings Prostate Specific Antigen 02/12/24 N40.0 - Benign prostatic hyperplasia without lower urinary tract symptoms, Z00.00 - Encounter for general adult medical examination without abnormal findings Comprehensive [place]. Panel Fast 02/12/24 E78.00 - Pure hypercholesterolemia, unspecified, Z00.00 - Encounter for general adult medical examination without abnormal findings Lipid Panel 02/12/24 E78.00 - Pure hypercholesterolemia, unspecified, Z00.00 - Encounter for general adult medical examination without abnormal findings UA CC w/rflx Micro + Cult 02/12/24 R30.0 - Dysuria, Z00.00 - Encounter for general adult medical examination without abnormal findings Vitamin D 25-OH Total 02/12/24 E55.9 - Vitamin D deficiency, unspecified, Z00.00 - Encounter for general adult medical examination without abnormal findings Coding Level of Care Code Est Pt Prev Care 40-64y(74178) Diagnoses Annual physical exam Z00.00 Hypertrophic cardiomyopathy I42.2 Arthralgia of hands, bilateral M25.541; M25.542 Overweight (BMI 25.0-29.9) E66.3
[2024-02-12 15:44] VITALS: BP 124/70; PULSE 64; O2SAT 97; BMI 28.0
== END 2024-02-12 16:39 | disposition home or self-care (01) ==
PROVIDERS: PCP Internal Medicine; Visit Provider Internal Medicine
DX: Z00.00 Encounter for general adult medical examination without abnormal findings (principal); I42.2 Other hypertrophic cardiomyopathy; M25.541 Pain in joints of right hand; M25.542 Pain in joints of left hand; E66.3 Overweight
CPT/HCPCS: 99396

== ENCOUNTER → 2024-06-04 07:43 | Outpatient (REF) | payer OTHER, SELFPAY ==
--- NOTE | 2024-06-04 07:53 | CA_ITS ---
Transthoracic Echocardiogram Patient (Last, First, Middle): Ghislaine Kim J Gender: Male Date of : 1965 Age: 59 Procedure Date: 06/04/2024 Procedure Type: Transthoracic Echocardiogram Location: OP Height: 195.58 cm Weight: 107.05 kg BSA: 2.40 m2 Heart Rate: 52 bpm BP: 126 / 68 mmHg Program Coordinator For Residence Life: SB Referring MD: Indio Hammonds MD Symptoms: I42.2 - Other hypertrophic cardiomyopathy Study Quality: Adequate ECG Rhythm: Bradycardia Conclusions: - The left ventricular systolic function is normal. The visually estimated ejection fraction is between 65-70%. - There is severe septal asymmetric hypertrophy. - No obvious valvular pathology seen on this study. - LV peak GLS -16.4%. - Resting peak LVOT gradient 22 mmHg; significant increase in valsalva. Intra-cavitary gradients with valsalva >100mmHg. Findings Left Ventricle Normal left ventricular cavity size. The left ventricular systolic function is normal. The visually estimated ejection fraction is between 65-70%. There is no evidence of regional wall motion abnormalities. Diastolic function is normal for age. There is severe septal asymmetric hypertrophy. Resting peak LVOT gradient 22 mmHg; significant increase in valsalva. Intra cavitary gradients with valsalva >100mmHg. LV peak GLS -16.4%. Septal thickness 1.9cm. Right Ventricle Mildly increased right ventricular cavity size. There is normal right ventricular systolic function. Atria The left atrium is normal in size. The right atrium is mildly dilated. Aortic Valve There is a normal trileaflet aortic valve. There is no aortic valve stenosis. There is trace (trivial) aortic valve regurgitation. Mitral Valve The mitral valve appears normal. There is trace mitral valve regurgitation. There is no mitral valve stenosis. Pulmonic Valve The pulmonic valve is likely normal. Tricuspid Valve Normal tricuspid valve structure. There is trace tricuspid valve regurgitation. There is no evidence of pulmonary hypertension. Great Vessels The asc aorta and aortic arch are normal in size. Venous The inferior vena cava was not well visualized. Pericardium/Pleural There is no evidence of pericardial effusion. Prior Study Comparison Changes noted compared to prior study dated: 08/08/2022. LV more hyperdynamic with increased LVOT and intracavitary gradients. Recommendations, Care & Conclusions No obvious valvular pathology seen on this study. Measurements 2D Linear Measurements IVSd: 1.90 0.6-0.9/0.6-1.0 cm LVIDd: 4.68 3.9-5.3/4.2-5.9 cm LVIDd Index: 1.95 2.4-3.2/2.2-3.1 cm/m2 LVIDs: 3.16 2.0-3.6 cm LVPWd: 1.54 0.7-1.1 cm LA Diam: 4.20 2.7-3.8/3.0-4.0 cm LAIDs Index: 1.75 1.5-2.3 cm/m2 LV Mass: 450.20 67-162/88-224 g LV Mass Index: 187.58 43-95/49-115 g/m2 LVOT Diam: 2.40 3.0+(-)1.3 cm 2D Systolic Function EF 4C: 62.60 >55% EF 2C: 58.90 >55% EF BiP: 60.00 >55% Mitral Valve MV Pk E: 0.66 MV PK A: 0.60 MV Decel Time: 309.00 E/A: 1.10 E'Lateral: 6.74 E'Medial: 5.66 E/E' Med: 11.60 E/E' Lat: 9.70 PHT: 91.00 MVA PHT: 2.42 Decel Camp: 2.13 Aortic Valve AoV Pk Neri: 2.13 AoV Pk Grad: 18.00 PERRY: 4.60 LVOT LVOT Pk Neri: 2.27 LVOT Mn Neri: 1.63 LVOT VTI: 0.45 LVOT Pk Grad: 21.00 LVOT Mn Grad: 12.00 LVOT Diam: 2.40 LVOT Area: 4.52 Diastolic Function MV Pk E: 0.66 MV Pk A: 0.60 E/A: 1.10 E'Medial: 5.66 E/E' Med: 11.60 E' Laterial: 6.74 E/E' Lat: 9.70 Right Ventricle TAPSE (mm): 27.60 TVS' Neri: 13.10 Tricuspid Valve RA Press: 3.00 Great Vessels Aorta Sinus of Valsalva: 3.90 2.0-3.5 cm Ao Asc: 3.70 2.1-3.4 cm Ao Arch: 3.50 Pulmonary Valve PV Pk Neri: 1.00 Peak PV Grad: 4.00 Updated in Other Vendor System with Status of Final Indio Hammonds MD electronically signed on 06/06/2024 2:24:22 PM with status of Final
== END ==
LOC: HO.CARD 07:43
PROVIDERS: PCP Internal Medicine; Visit Provider Internal Medicine
DX: I42.2 Other hypertrophic cardiomyopathy (principal)
CPT/HCPCS: 93306; 93356

== ENCOUNTER → 2024-06-04 07:53 | Outpatient (BNV) | payer OTHER, SELFPAY | PROVIDERS: PCP Internal Medicine; Visit Provider Internal Medicine | DX: I42.2 Other hypertrophic cardiomyopathy (principal) | CPT/HCPCS: 93306; 93356 ==

== ENCOUNTER 2024-06-15 12:26 | Outpatient (AMB) | payer OTHER, SELFPAY ==
--- NOTE | 2024-06-15 12:38 | MHC.OFFVIS ---
Vital Signs 06/15/24 12:39 Height 6 ft 5 in Weight 231 lb 7.766 oz BMI 27.4 BP 126/82 Blood Pressure Location Lt brachial Position Sitting Pulse 69 Intake Visit Reasons: 1 yr follow up School Administrator Required: No Accompanied by: Self / Same As Patient Allergies No Known Allergies Allergy (Verified 02/12/24 16:32) Medication List - Last Reconciled 06/15/24 by Indio Hammonds MD ibuprofen 800 mg PO DAILY HPI Comments Details: Ghislaine returns for follow-up. Originally referred for evaluation of possible abnormal heart rhythm during screening colonoscopy. Following this, he underwent workup that showed evidence of septal hypertrophy on echocardiogram. This led to a cardiac MRI confirming hypertrophic cardiomyopathy. Overall, he states he feels fine. Unrestricted physical activity with no limitations whatsoever. Only in times of very high humidity, he feels he may feel a bit short of breath but that is very infrequent. Otherwise, no new issues since last seen. In terms of family history, no known hypertrophic cardiomyopathy but father has wild-type transthyretin amyloidosis and not suspected to be genetic. [facility] Medical History Hypertrophic cardiomyopathy Overweight (BMI 25.0-29.9) Arthritis Surgical History History of rotator cuff surgery History of right knee surgery History of left knee surgery Family History Mother No problems noted. 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 Do you presently have visiting nurse or other home services: No Alcohol intake: former Patient Tobacco Use Status: Never used Tobacco e-Cigarette/Vaping Use: Never Used Second Hand Smoke Exposure: Yes service: No Current occupational status: employed Cognitive needs: No Hearing needs: No Vision needs: No Review of Systems Const All systems reviewed & are unremarkable except as noted in HPI and below Reports as per HPI and Reports no additional complaints Eyes Reports as per HPI and Denies no additional complaints ENT Denies no additional complaints and Reports as per HPI Card Reports as per HPI, Reports no additional complaints, Denies acrocyanosis, Denies chest pain, Denies leg edema, Denies lightheadedness, Denies palpitations and Denies dyspnea Resp Reports as per HPI, Denies no additional complaints and Denies dyspnea GI Reports as per HPI and Denies no additional complaints Reports no additional complaints and Reports as per HPI Musc Reports no additional complaints and Reports as per HPI Skin/Breast Reports system reviewed and no additional complaints, except as documented Neuro Reports no additional complaints and Reports as per HPI Psych Reports no additional complaints and Reports as per HPI Endo Reports no additional complaints, Reports as per HPI and Denies palpitations Huseyin/Lymph Reports no additional complaints and Reports as per HPI Aller/Immun Reports no additional complaints and Reports as per HPI Physical Exam Vital Signs: Last Vital Signs Pulse 69 06/15/24 12:39 BP 126/82 06/15/24 12:39 BMI result Body Mass Index 27.4 Const General: comfortable and no acute distress Orientation/consciousness: patient oriented x3 HEENT Other: Unremarkable Head: Yes normal to inspection Neck Neck: Yes normal visual inspection Chest Chest palpation & inspection: normal inspection of the chest Resp Auscultation: clear to auscultation bilaterally Cardio Palpation: normal PMI Heart sounds: S1 normal heart sound present, S2 normal heart sound present, no gallops, Murmur heart sound present systolic III/ and no rubs GI Palpation (GI): Soft to palpation Back/Spine/Pelvis Other: unremarkable Skin General skin exam: no rashes or lesions noted Neuro General: patient oriented x3 Extrem General: Yes normal to inspection Psych Mental Status: mental status grossly normal Office Procedures EKG Details: EKG with underlying sinus rhythm at 69/Min; right atrial enlargement; incomplete right bundle-branch block pattern; voltage criteria for LVH; ST depression in the inferior and anterolateral leads suspect all related to LVH/strain pattern. [id number], Complete Assessment & Plan Assessment & Plan (1) Hypertrophic cardiomyopathy: Code(s): I42.2 - Other hypertrophic cardiomyopathy Category: Medical Plan Cardiac studies reviewed. EKG suggestive of LVH/strain pattern. In the most recent echocardiogram from this month, LVEF 65-70% with severe septal hypertrophy. Septal thickness of about 1.9 cm. Resting LVOT gradient was about 22 mm Hg but there is significant increase with Valsalva. Intracavitary gradient with Valsalva exceed 100 mm Hg. Cardiac MRI from 09/2022- LVEF 69%; severe septal hypertrophy with maximum diameter 18mm. Dilated atria. Delayed enhancement overall, less than 5% of total myocardium. In the mid inferior septum/anterior septum much more prominent at 50-75% of myocardial thickness. In the exercise stress test 08/2022, he was able to do 11.7 METS on Ozzy protocol. 101% of max predicted heart rate; EKG changes meeting criteria for ischemia but no angina whatsoever. Likely not suggestive of ischemia overall. Holter 07/2022 with underlying sinus rhythm, rare PVCs, PACs. Overall, hypertrophic cardiomyopathy but no clinical symptoms. We discussed about the condition in great detail. At the present time, no symptoms whatsoever and unlimited exercise tolerance. We will refer him to the hypertrophic cardiomyopathy center at [facility] for 2nd opinion. Patient is willing to go. We also discussed about family screening of his first-degree relatives. He will call us with ongoing concerns and we will plan on seeing him back in follow-up after he is seen at [facility]. Coding Level of Care Code Est Pt Level 4 (00118) Diagnoses Hypertrophic cardiomyopathy I42.2 CPT Codes EKG - CPT: 71645-Mwctezygdctafwgoo, Complete ([id number])
[2024-06-15 12:39] VITALS: BP 126/82; PULSE 69; BMI 27.4
== END 2024-06-15 13:19 | disposition home or self-care (01) ==
PROVIDERS: PCP Internal Medicine; Visit Provider Internal Medicine
DX: I42.2 Other hypertrophic cardiomyopathy (principal)
CPT/HCPCS: 93010; 99214

== ENCOUNTER → 2024-06-15 12:26 | Outpatient (BNVA) | payer OTHER, SELFPAY | PROVIDERS: PCP Internal Medicine; Visit Provider Internal Medicine | DX: I42.2 Other hypertrophic cardiomyopathy (principal) | CPT/HCPCS: 93005 ==

== ENCOUNTER 2025-02-12 14:40 | Outpatient (AMB) | payer OTHER, SELFPAY ==
--- NOTE | 2025-02-12 14:43 | MHC.PC.OV ---
Vital Signs 02/12/25 14:44 Height 6 ft 5 in Weight 227 lb 6 oz BMI 27.0 BP 110/80 Blood Pressure Location Lt brachial Position Sitting Pulse 77 Pulse Source Pulse Oximeter Pulse Oximetry (%) 95 Oxygen Delivery Method Room Air Intake Visit Reasons: Annual exam Heel Slicker Required: No Accompanied by: Self / Same As Patient Allergies No Known Allergies Allergy (Verified 02/12/25 15:32) Medication List - Last Reconciled 02/12/25 by Chan Phillips MD ibuprofen 800 mg PO DAILY Tobacco use date assessed: 02/12/25 Dental Screening Dental Screen Date: 02/12/25 Did you have a dental visit in the last 12 months?: No Did you have a dental problem in the last 6 months where you did not have access to dental care?: No Was dental information given to patient?: No HPI Annual exam HPI Details Patient comes in today for his annual physical examination States that he currently feels okay Patient underwent septal myomectomy early last week on 02/02/2025 at the [facility] in [place], [place] States that since his cardiac surgery, he no longer has any significant fatigue or exertional dyspnea, which he states were getting worse over the past few months States that he still has some soreness on his anterior chest area but otherwise denies any chest pains or increased shortness of breath He denies any headaches or dizziness No nausea/vomiting, no abdominal pain No change in bowel habits noted He denies any acute urinary symptoms Patient states that he had extensive labs done while he was admitted at the [facility] for his cardiac surgery last week and is hoping that he would not have to get any more labs done at this time He had his screening colonoscopy done with Dr. An a couple of years ago on 02/19/2023 - his colonoscopy came out normal and he was advised that he will need a repeat colonoscopy in 10 years (2032) [facility] Medical History (Updated 02/14/25 @ 06:59 by Chan Phillips MD) Hypertrophic cardiomyopathy Overweight (BMI 25.0-29.9) Arthritis Surgical History (Updated 02/14/25 @ 06:59 by Chan Phillips MD) Hx of ventricular septal myectomy History of colonoscopy History of rotator cuff surgery History of right knee surgery History of left knee surgery Family History Mother No problems noted. 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 1. Little interest or pleasure in doing things: not at all 2. Feeling down, depressed, or hopeless: not at all 3. Trouble falling or staying asleep, or sleeping too much: several days 4. Feeling tired or having little energy: not at all 5. Poor appetite or overeating: not at all 6. Feeling bad about yourself - or that you are a failure or have let yourself or your family down: not at all 7. Trouble concentrating on things, such as reading the newspaper or watching television: not at all 8. Moving or speaking so slowly that other people could have noticed. Or the opposite - being so fidgety or restless that you have been moving around a lot more than usual: not at all 9. Thoughts that you would be better off or of hurting yourself in some way: not at all Total score: 1 Depression Screening Interpretation: Negative Depression Screening Done: Yes 09898 - PHQ-9 Billing: Yes Source: Developed by Drs. Leland Anand, Yandy Purvis, Jose Hill and colleagues, with an educational loli from [employer]. Thrive Questionnaire Date Thrive assessed: 02/12/25 I am a: Patient What is your living situation today?: I have a steady place to live Within the past 12 months, did the food you bought not last and you didn't have the money to get more?: Never true Within the past 12 months, did you worry whether your food would run out before you got money to buy more?: Never true Do you have trouble paying for medicines?: No Do you have trouble getting transportation to medical appointments?: No Do you have trouble paying your heating and electricity bill?: No Do you have trouble taking care of your child, family member or friend?: No Do you have trouble with day-to-day activities such as bathing, preparing meals, shopping, managing finances, etc.?: No Are you currently unemployed and looking for a job?: No Are you interested in more education?: No Please select the resources that you would like help with: None Currently or been in a relationship where the following occur: No concerns reported THRIVE Score: 0 AUDIT C Alcohol Use Questionnaire (AUDIT-C) 1. How often do you have a drink containing alcohol?: Never 3. How often do you have six or more drinks on one occasion?: Never Total Score: 0 Score Reviewed/Action Taken: Yes MICHAEL-7 AMB Questionnaire MICHAEL-7 Date MICHAEL - 7 assessed: 02/12/25 Feeling nervous, anxious, or on edge: 0 = Not at all Not being able to stop or control worryin = Not at all Worrying too much about different things: 0 = Not at all Trouble relaxin = Not at all Being so restless that it is hard to sit still: 0 = Not at all Becoming easily annoyed or irritable: 0 = Not at all Feeling afraid as if something awful might happen: 0 = Not at all Total MICHAEL-7 score (0-4 normal; 5-9 mild; 10-14 moderate; 15-21 severe): 0 Source: Developed by Drs. Leland Anand, Yandy Purvis, Jose Hill and colleagues, with an educational loli from [employer]. Review of Systems Const Denies chills, Denies fatigue, Denies fever(s), Denies headache(s), Denies malaise and Denies weakness Eyes Denies blurry vision, Denies change in vision, Denies irritation and Denies itchy eyes ENT Denies dysphagia, Denies dizziness, Denies otalgia, Denies headache(s), Denies nasal congestion, Denies neck pain, Denies odynophagia and Denies sore throat Card Reports chest pain ((+) mild soreness over the anterior chest area), Denies chest pain with activity, Denies rapid heart rate, Denies irregular heart rhythm, Denies palpitations and Denies dyspnea Resp Denies chest congestion, Denies cough, Denies dyspnea and Denies wheezing GI Denies abdominal pain, Denies bloating, Denies constipation, Denies dysphagia, Denies heartburn, Denies diarrhea, Denies nausea, Denies odynophagia and Denies vomiting Denies hematuria, Denies difficulty urinating, Denies dysuria, Denies urinary frequency and Denies urinary urgency Musc Denies back pain, Denies arthralgias, Denies joint swelling, Denies muscle weakness and Denies neck pain Skin/Breast Denies change in pigmentation, Denies lesions, Denies rash and Denies unusual bruising Neuro Denies dizziness, Denies headache(s), Denies paresthesias and Denies weakness Endo Denies fatigue and Denies palpitations Aller/Immun Denies itchy eyes and Denies wheezing Physical exam (Primary Care) Vital Signs: Last Vital Signs Pulse 77 02/12/25 14:44 BP 110/80 02/12/25 14:44 Pulse Ox 95 02/12/25 14:44 Oxygen Delivery Method Room Air 02/12/25 14:44 BMI result Body Mass Index 27.0 Tobacco/Smoking Status: Tobacco use Status Tobacco use date assessed 02/12/25 02/12/25 14:47 Patient Tobacco Use Status Never used Tobacco 02/12/25 14:47 e-Cigarette/Vaping Use Never Used 02/12/25 14:47 PHQ-9: PHQ-9 Score PHQ-9: Total score 1 02/12/25 15:35 Depression Screening Interpretation: Negative Thrive Assessment: Date of Thrive Assessment Date Thrive assessed 02/12/25 02/12/25 14:54 Currently or been in a relationship where the following occur: No concerns reported Const General: no acute distress, alert and awake Orientation/consciousness: patient oriented x3 HENMT Head: Yes normocephalic and Yes atraumatic Ears: external ears normal, TM's normal bilaterally and EAC's normal General nose exam: No nasal discharge present Face and sinus: Yes normal facial exam and Yes sinuses nontender Teeth and gingiva: dentition normal Throat: Yes posterior oropharynx normal and Yes tonsils normal (no TP congestion) Eyes Eyelids: Yes eyelids normal Conjunctivae: conjunctivae normal Pupils: Equal, round and reactive pupils present EOM: EOMs intact bilaterally Neck Neck: Yes no lymphadenopathy and Yes supple Thyroid: Thyroid normal Resp Auscultation: clear to auscultation bilaterally, no rales and no wheezes Cardio Rate: regular rate Rhythm: regular rhythm Heart sounds: no murmurs GI Palpation (GI): Soft to palpation, nontender and No hepatosplenomegaly present Auscultation: normal bowel sounds General: Yes no CVA tenderness Back/Spine/Pelvis Back: no CVA tenderness Thoracic/Lumbar Spine: thoracic and lumbar spine normal to inspection Skin Lesions: no lesions Rashes: no rashes Neuro General: patient oriented x3, moves all extremities, no focal motor deficits and CN's II-XI intact bilaterally Cranial nerves: Yes Equal, round and reactive pupils present Cognition (Neuro): normal cognition Gait exam (Neuro): Normal gait present Extrem General: Yes no clubbing, cyanosis or edema Coding Level of Care Code Est Pt Prev Care 40-64y(29532) Diagnoses Annual physical exam Z00.00 Hypertrophic cardiomyopathy I42.2 Arthralgia of hands, bilateral M25.541; M25.542 Overweight (BMI 25.0-29.9) E66.3 Additional Codes PHQ-9 - 92795 - PHQ-9 Billing: Yes ([id number]) Assessment & Plan Assessment & Plan (1) Annual physical exam: Code(s): Z00.00 - Encounter for general adult medical examination without abnormal findings Category: Medical Plan: Patient states that he had extensive labs done the [facility] when he was admitted therefore his cardiac surgery last week We will try to see we can obtain a copy of these lab reports for review and documentation Patient is current up-to-date with his colon cancer screening and he is not due for repeat colonoscopy until 2032 (2) Hypertrophic cardiomyopathy: Code(s): I42.2 - Other hypertrophic cardiomyopathy Category: Medical Plan: s/p septal myomectomy at the [facility] last week on 02/02/2025 Patient states that his symptoms of fatigue and exertional dyspnea have improved significantly since his cardiac surgery His most recent echocardiogram done prior to surgery revealed preserved biventricular function and a coronary CTA done recently revealed no obstructive coronary disease Patient adds that he underwent genetic testing for cardiac amyloidosis and his test came back negative Follow-up with cardiology as scheduled (3) Arthralgia of hands, bilateral: Code(s): M25.541 - Pain in joints of right hand; M25.542 - Pain in joints of left hand Category: Medical Plan: This is likely due to 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 hands Patient states that he routinely takes Ibuprofen 800 mg QD in the morning or he will not be able to use his hands and work (due to pain) States that he has been going to see orthopedics at [facility] over the years for his joint pains He is again advised to call if he feels that his hand symptoms are progressing and Ibuprofen is no longer helping him adequately (4) Overweight (BMI 25.0-29.9): Code(s): E66.3 - Overweight Category: Medical Plan: Reinforced diet/exercise as tolerated/lose weight Plan To return in 1 year for his next annual physical examination Orders: Orders Vitamin D 25-OH Total 1 Year E55.9 - Vitamin D deficiency, unspecified, Z00.00 - Encounter for general adult medical examination without abnormal findings Prostate Specific Antigen 1 Year N40.0 - Benign prostatic hyperplasia without lower urinary tract symptoms, Z00.00 - Encounter for general adult medical examination without abnormal findings Complete Blood Count Auto Diff 1 Year D64.9 - Anemia, unspecified, Z00.00 - Encounter for general adult medical examination without abnormal findings Comprehensive [place]. Panel Fast 1 Year E78.00 - Pure hypercholesterolemia, unspecified, Z00.00 - Encounter for general adult medical examination without abnormal findings Lipid Panel 1 Year E78.00 - Pure hypercholesterolemia, unspecified, Z00.00 - Encounter for general adult medical examination without abnormal findings TSH reflex Free T4 1 Year E78.00 - Pure hypercholesterolemia, unspecified, Z00.00 - Encounter for general adult medical examination without abnormal findings UA CC w/rflx Micro + Cult 1 Year R30.0 - Dysuria, Z00.00 - Encounter for general adult medical examination without abnormal findings
[2025-02-12 14:44] VITALS: BP 110/80; PULSE 77; O2SAT 95; BMI 27.0
== END 2025-02-12 15:42 | disposition home or self-care (01) ==
LOC: HO.HMCH 14:40
PROVIDERS: PCP Internal Medicine; Visit Provider Internal Medicine
DX: Z00.00 Encounter for general adult medical examination without abnormal findings (principal); I42.2 Other hypertrophic cardiomyopathy; M25.541 Pain in joints of right hand; M25.542 Pain in joints of left hand; E66.3 Overweight

== ENCOUNTER → 2025-02-12 14:40 | Outpatient (BNVA) | payer OTHER, SELFPAY | PROVIDERS: PCP Internal Medicine; Visit Provider Internal Medicine | DX: Z00.00 Encounter for general adult medical examination without abnormal findings (principal); I42.2 Other hypertrophic cardiomyopathy; M25.541 Pain in joints of right hand; M25.542 Pain in joints of left hand; E66.3 Overweight; Z68.27 Body mass index [BMI] 27.0-27.9, adult | CPT/HCPCS: 96127 ==

== ENCOUNTER 2025-06-19 16:28 | Emergency (ER) | payer OTHER, SELFPAY ==
--- NOTE | ~2025-06-19 | XR_ITS ---
CLINICAL HISTORY: trauma 3 view right elbow Comparison: None provided Findings: No acute fractures. Normal alignment. Mild degenerative changes of the elbow. No joint effusion. No radiopaque foreign body. Extensive posterior elbow swelling. There is a dystrophic calcification in the region of the triceps tendon. IMPRESSION: 1. Extensive posterior elbow swelling. This document has been electronically signed by: Manuel Madden MD on 06/19/2025 17:30:28
[2025-06-19 16:34] VITALS: BP 140/83; PULSE 76; RESP 16; TEMP 36.2; O2SAT 96; BMI 26.4
--- NOTE | 2025-06-19 16:37 | ED_ITS ---
HPI - General Adult General Chief complaint: Extremity Injury, Upper Stated complaint: right elbow inj Time Seen by Provider: 06/19/25 16:46 Source: patient, RN notes reviewed and old records reviewed Mode of arrival: ambulatory Limitations: no limitations History of Present Illness ED Provider: Emmie Venegas PA-C HPI narrative: 60-year-old male with medical history of hypertrophic cardiomyopathy s/p septal myomectomy on 01/2025, arthritis, Ruptured bursa of R elbow with needle drainage 06/2025, presents to the ED due to right elbow pain. 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 complaint: R elbow pain Related Data Home Medications ?Medication ?Instructions ?Recorded ?Confirmed ibuprofen 800 mg tablet 800 mg PO DAILY 08/22/22 Previous Rx's ?Medication ?Instructions ?Recorded lisinopril 10 mg tablet 10 mg PO DAILY 90 days #90 t abs 02/14/25 metoprolol succinate 100 mg 100 mg PO DAILY 90 days #9 0 tabs 02/14/25 tablet,extended release 24 hr pantoprazole 40 mg tablet,delayed 40 mg PO DAILY 90 da ys #90 tabs 02/14/25 release cephalexin 500 mg capsule 500 mg PO BID 7 days #14 cap s 06/19/25 ketorolac 10 mg tablet 10 mg PO Q8H PRN pain 1 day #20 06/19/25 tabs Allergies Allergy/AdvReac Type Severity Reaction Status Date / Time No Known Allergies Allergy Verified 06/19/25 16:36 Review of Systems 2 Review of Systems: CONST: Negative for fever, body aches and chills. HENT: Negative for neck pain/stiffness, headache, congestion, sore throat, swelling. EYES: Negative for discharge/pain or vision changes. RESP: Negative for cough/hemoptysis and shortness of breath. CV: Negative chest pain, difficulty breathing, palpitations. ABD: Negative pain, nausea, vomiting. : Negative increase frequency, dysuria, blood in urine or stool. MUSC: Negative for muscle aches, edema. POS R elbow pain and swelling SKIN: Negative rash, lesions/sores. NEURO: Negative headache, dizziness, weakness. Yes all other systems are reviewed and are negative [facility] Past Medical History Attestation statement: The following information was validated with the patient. Source: old records reviewed and nursing notes reviewed Medical History Hypertrophic cardiomyopathy Overweight (BMI 25.0-29.9) Arthritis Surgical History Hx of ventricular septal myectomy History of colonoscopy History of rotator cuff surgery History of right knee surgery History of left knee surgery Family History Family History Mother No problems noted. Father Amyloidosis Social History Social History Household Members Other:: grandson Housing: House Are you a primary home health aide caregiver to a significant other at home: Yes Do you presently have visiting nurse or other home services: No Alcohol intake: former Patient Tobacco Use Status: Never used Tobacco Smoked in Last 30 Days: No e-Cigarette/Vaping Use: Never Used Second Hand Smoke Exposure: Yes Use of substances other than those prescribed or required for medical reasons: Yes Substance Use Type: Marijuana Substance Use Frequency: Daily Advance Directives: No Advance Directives Information Provided: No service: No Current occupational status: employed Cognitive needs: No Hearing needs: No Vision needs: No Physical Exam ED Vital Signs: Vital Signs - 24 hr 06/19/25 16:34 06/19/25 16:47 06/19/25 18:24 Temperature 97.2 F 98.4 F 98.4 F Pulse Rate 76 72 72 Respiratory Rate 16 16 16 Blood Pressure 140/83 H 144/83 H 144/83 H Pulse Oximetry 96 97 97 Oxygen Delivery Method Room Air Room Air Room Air 06/19/25 18:44 Temperature 98.4 F Pulse Rate 69 Respiratory Rate 17 Blood Pressure 128/83 Pulse Oximetry 97 Oxygen Delivery Method Room Air BMI result Body Mass Index 26.4 GENERAL APPEARANCE: ?AxOx4, generally well-appearing, no acute distress. HEENT: ?NC, AT. MMM. EOMI, clear conjunctiva, oropharynx clear. NECK: ?Supple without lymphadenopathy.? No stiffness or restricted ROM. HEART:? Normal rate and regular rhythm, normal S1/S1, no m/r/g LUNGS:? CTAB, moving air well. No crackles or wheezes are heard. ABDOMEN: ?Soft, nontender, nondistended with good bowel sounds heard. BACK: No CVAT, no obvious deformity. EXTREMITIES: ?Without cyanosis, clubbing or edema. R elbow with significant edema, mild erythema, very small abrasion over the olecranon process, ROM intact, SILT, appropriate capillary refill, radial pulses 2+ B/L. See photos NEUROLOGICAL: ?Grossly nonfocal. Alert and oriented, moving all 4 extremities. Observed to ambulate with normal gait. Skin: ?Warm and dry without any rash. Course Course Course Narrative: RME, this is a rapid medical exam performed by Moses Caldwell please refer to primary provider for complete H&P- 60-year-old male presents for evaluation of right elbow pain after some acne on a metal bar at work. Plan for x-rays Medications Administered Discontinued Medications Generic Name Dose Route Start Last Admin Trade Name Carlos Albertoq PRN Reason Stop Dose Admin Ketorolac Tromethamine 30 mg 06/19/25 18:25 06/19/25 18:33 Ketorolac Tromethamine 30 Mg/Ml Vial IM 06/19/25 18:26 30 mg ONCE ONE Administration Omeprazole 20 mg 06/19/25 18:25 06/19/25 18:34 Omeprazole 20 Mg Capsule. PO 06/19/25 18:26 20 mg ONCE ONE Administration Medical Decision Making Medical Decision Making MDM Narrative: 60-year-old male with medical history of hypertrophic cardiomyopathy s/p septal myomectomy on 01/2025, arthritis, Ruptured bursa of R elbow with needle drainage 06/2025, presents to the ED due to right elbow pain. 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 VS on initial observation-BP 144/83, pulse rate is 72, respiratory rate of 16, afebrile with oral temp of 98.4?, O2 saturation 97% on room air. Course 18:21- Labs reveal leukocytosis of 11.0, H&H stable, no electrolyte abnormality, CRP elevated at 7.33 XR R elbow negative for fracture, dislocation, or joint effusion, reveals a dystrophic calcification in the region of the triceps tendon with posterior elbow swelling. At this time I believe patient with olecranon bursitis, cellulitis, with triceps tendinitis of the right elbow after traumatic injury today. Patient with full ROM, no anatomical abnormality seen or palpated of the bicep, tricep region- less likely tendon rupture/septic joint. I do believe there is traumatic cellulitis as area has mild erythema and warmth. Will treat with 7 day course of keflex for coverage. Patient will receive bonilla bandage and IM Toradol for pain and swelling. I placed referral for follow up with Orthopedics for further evaluation and treatment if needed. Differential Diagnosis Differential Diagnoses: The differential diagnosis associated with the presentation includes Olecranon bursitis Cellulitis Olecranon fracture Triceps tendon rupture Admission/Observation Consideration of admission/observation: Escalation of care including admission/observation considered Lab Data MDM Lab Attestation statement: I reviewed the patient's lab results. 06/19/25 17:17 06/19/25 17:17 Labs: Lab Results 06/19/25 Range/Units 17:17 WBC 11.0 H (4.8-10.8) X10*3/uL RBC 4.90 (4.60-5.80) X10*6/uL Hgb 14.1 (14.0-18.0) g/dl Hct 39.2 L (42.0-52.0) % MCV 80.0 (80.0-98.0) fL MCH 28.8 (27.0-33.0) pg MCHC 36.0 (31.0-36.0) g/dl RDW 13.7 (11.0-16.0) % Plt Count 296 D (160-400) X10*3/uL MPV 9.6 (9.4-12.4) fL Immature Gran % (Auto) 0.5 H (0.0-0.4) % Neut % (Auto) 76.0 H (45-73) % Lymph % (Auto) 12.1 L (20-40) % [place]illion % (Auto) 10.4 (2-11) % Eos % (Auto) 0.5 (0-4) % Baso % (Auto) 0.5 (0-2) % Lymph # (Auto) 1.3 (1.2-4.9) X10*3/uL [place] # (Auto) 1.1 (0.1-1.2) X10*3/uL Eos # (Auto) 0.1 (0.0-0.4) X10*3/uL Baso # (Auto) 0.1 (0.0-0.2) X10*3/uL Abs Immat Gran (auto) 0.05 H (0.00-0.03) X10*3/uL Absolute Neuts (auto) 8.3 (2.0-8.3) x10*3/uL Absolute Nucleated RBC 0.000 (0.0-0.012) X10*3/uL Nucleated RBC % (auto) 0.0 (0.0-0.2) /100WBC ESR 34 H (0-15) MM/HR Sodium 139 (135-145) mmol/L Potassium 3.9 (3.3-5.1) mmol/L Chloride 107 (96-108) mmol/L Carbon Dioxide 21 L (22-29) mmol/L Anion Gap 15 (12-20) BUN 21 H (9-16) mg/dL Creatinine 0.99 (0.5-1.4) mg/dL Estim Creat Clear Calc 87.0 Estimated GFR > 60 Random Glucose 113 (60-115) mg/dL Calcium 9.2 (8.4-10.2) mg/dL Magnesium 2.1 (1.6-2.6) mg/dL Total Bilirubin 0.7 (0.0-1.0) mg/dL AST 30 (5-37) U/L ALT 28 (0-40) U/L Alkaline Phosphatase 86 (39-117) U/L C-Reactive Protein 7.33 H (< or = 0.50) mg/dL Total Protein 7.6 (6.5-8.0) g/dL Albumin 4.6 (3.5-5.0) g/dL Independent Interpretation I performed an independent interpretation of an: Plain X-Ray Interpretation: I personally interpreted the x-ray of the right elbow which was negative for fracture, dislocation, joint effusion however there is a small calcific abnormality of the olecranon, I agree with the radiologist's interpretation Radiology Impression Discussion of test interpretation with radiology: I have reviewed the radiologist's reading. Radiologist Impression: XR R elbow Findings: No acute fractures. Normal alignment. Mild degenerative changes of the elbow. No joint effusion. No radiopaque foreign body. Extensive posterior elbow swelling. There is a dystrophic calcification in the region of the triceps tendon. IMPRESSION: 1. Extensive posterior elbow swelling. This document has been electronically signed by: Manuel Madden MD on 06/19/2025 17:30:28 Dictated By: Manuel Madden MD Signed By: <Electronically signed by Manuel Madden MD in OV> 06/19/25 [id number] External Record Review External record reviewed: Inpatient record, Office record and Outpatient record Chronic Conditions Patient?s care impacted by: Other (Hypertrophic cardiomyopathy, arthritis) Discharge Plan Discharge Clinical Impression: Cellulitis, Bursitis, olecranon, Calcific tendonitis Patient Disposition: Home, Self-Care Instructions: Cellulitis (ED), Elbow Bursitis (ED), Tendinitis (ED) Additional Instructions: You were evaluated in the ED today due to right elbow pain. Your lab work showed an elevation in your white blood cell count of 11 which suggests mild infection, no evidence of anemia or electrolyte imbalance, your CRP was elevated today at 7.33, which is a marker for inflammation. The x-ray of your right elbow was negative for fracture or dislocation, or joint line swelling however did show a calcification in the region of your triceps tendon. Your physical exam was reassuring as you do not have a fever, and are able to move your arm and elbow fully, the pulses in your right arm were intact. I will prescribe you a 7 day course of Keflex which is an antibiotic for cover for bacterial infection, and Toradol which is a strong NSAID for inflammation. While taking this medication do not take any other NSAIDS including ibuprofin, motrin, aleve. You were medicated in the ED today with IM Toradol, Bonilla wrap for compression. At home you will manage this by alternating 500 mg of Tylenol and 400 mg of ibuprofen every 4 hours. Continue to wrap the elbow with light compression for comfort. I recommend you ice the area on and off throughout the day, with elevation to help with swelling. I placed a referral for you to the orthopedic doctors for further evaluation management if indicated. You have to call their office as they will not call you. Please return to the emergency department if you experience worsening pain of your right elbow, worsening swelling, worsening redness, difficulty moving the arm stiffness in the elbow, fevers over 100.4?, chills, or any new/worsening/concerning symptoms. Prescriptions: New cephalexin 500 mg capsule 500 mg PO BID 7 Days Qty: 14 0RF ketorolac 10 mg tablet 10 mg PO Q8H PRN (Reason: pain) 1 Days Qty: 20 0RF Rx Instructions: Patient was medicated with 30mg IM Toradol in ED for elbow pain and swelling No Action ibuprofen 800 mg tablet 800 mg PO DAILY metoprolol succinate 100 mg tablet extended release 24 hr 100 mg PO DAILY 90 Days Qty: 90 1RF lisinopril 10 mg tablet 10 mg PO DAILY 90 Days Qty: 90 1RF pantoprazole 40 mg tablet,delayed release (DR/EC) 40 mg PO DAILY 90 Days Qty: 90 1RF Referrals: [facility] Orth[facility] Surgeons [Provider Group] Referral Note: calcific tendonitis of triceps tendon Interventions: ED Discharge Assessment Last Done: 06/19/25 18:44 Discharge Date/Time: 06/19/25 18:54 Print Language: Faroese
[2025-06-19 16:47] VITALS: BP 144/83; PULSE 72; RESP 16; TEMP 36.9; O2SAT 97
--- NOTE | 2025-06-19 16:49 | PC.NURSE ---
Patient presents to ED c/o swollen right elbow, patient had direct blow to elbow from steel bracket on bobcat Denies pain, numbness, and tingling. +CMS +ROM Patient reports rupturing bursa in right elbow last year, it was drained at [facility] Right elbow swollen and warm. VSS Provider in to see patient plan of care on going
--- OUTSIDE RECORDS SUMMARY | 2025-06-19 17:04 | XMS_ITS | Clinical Summary ---
Author Organization [facility] Address [address] [place] [address] Phone Care Team Providers Care Laborer Wood Preserving Plant Name Role Phone Chan Phillips MD Primary Care Provider [phone] Allergies No known active allergies Medications oxyCODONE 5 MG immediate release tablet Take 1 tablet (5 mg total) by mouth every 4 (four) hours as needed for moderate pain. 5 tablet 03/27/2020 Active amoxicillin (AMOXIL) 500 MG capsule Take 1 capsule (500 mg total) by mouth 3 (three) times a day. 21 capsule 03/27/2020 Active Social History Tobacco Use Types Packs/Day Years Used Date Smoking Tobacco: Never Smokeless Tobacco: Never Alcohol Use Standard Drinks/Week Comments Not Currently 0 (1 standard drink = 0.6 oz pur e alcohol) Education Answer Date Recorded Are you interested in more education? Not on ashley e 02/15/2023 Are you concerned about learning? Not on file 02/15/2023 No 02/15/2023 No 02/15/2023 Digital Access Answer Date Recorded No 03/18/2023 No 03/18/2023 No 03/18/2023 Reliable internet access at home? Not on file 03/18/2023 Device with a working camera? Not on file Intimate Partner Violence Answer Date R ecorded Are you denied basic needs s uch as food, clothing, or medical care? No 06/21/2024 In the past 12 months have y ou been in a relationship with a person who hurts, threatens, or tries to control you? No 06/21/2024 Are you denied basic needs s uch as food, clothing, or medical care? No 06/21/2024 In the past 12 months have y ou been in a relationship with a person who hurts, threatens, or tries to control you? No 06/21/2024 Sex and Gender Information Value Date Recorded Sex Assigned at Male 03/27/2020 12:41 AM EDT Legal Sex Male 9:42 PM EDT Gender Identity Male 03/27/2020 12:41 AM EDT Sexual Orientation Choose not to disclose 2023 9:03 PM EDT Last Filed Vital Signs Vital Sign Reading Time Taken Comments Blood Pressure 154/83 06/21/2024 11:06 PM EDT Pulse 60 06/21/2024 11:06 PM EDT Temperature 36.9 C (98.4 F) 06/21/2024 11:06 PM EDT Respiratory Rate 16 06/21/2024 11:06 PM EDT Oxygen Saturation 96% 06/21/2024 11:06 PM EDT Inhaled Oxygen Concentration - - Weight 108 kg (238 lb) 06/21/2024 6:37 PM EDT Height 193 cm (6' 4 ) 06/21/2024 6:37 PM EDT Body Mass Index 28.97 06/21/2024 6:37 PM EDT Plan of Treatment Health Maintenance Due Date Last Done Comments Adult Td,Tdap Booster 1965 LIPID PANEL 1965 DEPRESSION SCREENING 1977 HEPATITIS C SCREENING 1983 HIV ONE-TIME SCREENING (18-6 5 YEARS) 1983 SMOKING STATUS SCREENING (On ce After 26 Yrs) 1991 SCREENING FOR DIABETES 02/17/2000 COLOGUARD 2010 COLONOSCOPY 2010 COLORECTAL CANCER SCREENING 2010 FIT TEST 2010 FOBT 2010 SIGMOIDOSCOPY 2010 VIRTUAL COLONOSCOPY 2010 PNEUMOCOCCAL VACCINES (50+ y ears) (1 of 1 - PCV) 2015 ZOSTER VACCINES (1 of 2) 2015 COVID-19 VACCINE ( - 2023-2 5 season) 2024 INFLUENZA VACCINE (#1) 2025 10/20/2020 RSV VACCINE (1 - 1-dose 75+ series) 02/17/2040 HEPATITIS A VACCINES Aged Out No long er eligible based on patient's age to complete this topic HIB VACCINES Aged Out No longer eligi ble based on patient's age to complete this topic MENINGOCOCCAL VACCINES (ACWY) Aged Out No longer eligible based on patient's age to complete this topic MENINGOCOCCAL VACCINES (B) Aged Out N o longer eligible based on patient's age to complete this topic Medical Devices Not on file Insurance O O [place] [address] [place], [place] [address] [place], [place] [address]O Care Teams Laborer Wood Preserving Plant Relationship Specialty Start Date End Date Chan Phillips MD [address] [place] [address] [place] [address] PCP - General Internal Medicine 03/27/20 Additional Source Comments The information contained in this document represents components of the legal health record. It is not the complete legal health record.[facility]
[2025-06-19 17:21] LABS: MANUAL DIFF FLAG NO
[2025-06-19 17:24] LABS: Hematocrit 39.2 % (42.0-52.0); Hemoglobin 14.1 g/dl (14.0-18.0); Imm Gran Abs Auto 0.05 X10*3/uL (0.00-0.03); Imm Gran Pct Auto 0.5 % (0.0-0.4); Lymphocytes Absolute Auto 1.3 X10*3/uL (1.2-4.9); Mean Corpuscular HGB Conc 36.0 g/dl (31.0-36.0); Mean Corpuscular Hemoglobin 28.8 pg (27.0-33.0); Mean Corpuscular Volume 80.0 fL (80.0-98.0); NRBC Abs Auto 0.000 X10*3/uL (0.0-0.012); NRBC Pct Auto 0.0 /100WBC (0.0-0.2); Platelet Count 296 X10*3/uL (160-400); Red Blood Count 4.90 X10*6/uL (4.60-5.80); White Blood Count 11.0 X10*3/uL (4.8-10.8)
[2025-06-19 17:40] LABS: Alanine Aminotransferase 28 U/L (0-40); Albumin Level 4.6 g/dL (3.5-5.0); Alkaline Phosphatase 86 U/L (39-117); Anion Gap 15 (12-20); Aspartate Amino Transferase 30 U/L (5-37); Blood Urea Nitrogen 21 mg/dL (9-16); Calcium 9.2 mg/dL (8.4-10.2); Carbon Dioxide 21 mmol/L (22-29); Chloride 107 mmol/L (96-108); Creatinine Clr Calc Pharmacy 87.0; Estimated Glomerular Filt Rate > 60; Magnesium 2.1 mg/dL (1.6-2.6); Potassium 3.9 mmol/L (3.3-5.1); Sodium 139 mmol/L (135-145); Total Protein 7.6 g/dL (6.5-8.0)
[2025-06-19 18:24] VITALS: BP 144/83; PULSE 72; RESP 16; TEMP 36.9; O2SAT 97
[2025-06-19 18:44] VITALS: BP 128/83; PULSE 69; RESP 17; TEMP 36.9; O2SAT 97
== END 2025-06-19 18:54 | disposition home or self-care (01) ==
PROVIDERS: Emergency Provider Emergency Medicine; PCP Internal Medicine
DX: M70.21 Olecranon bursitis, right elbow (principal); M25.521 Pain in right elbow; Z79.899 Other long term (current) drug therapy
CPT/HCPCS: 36415; 73080; 80053; 83735; 85025; 85652; 86140; 96372; 99284; J1885

== ENCOUNTER → 2025-06-19 16:37 | Outpatient (BNV) | payer OTHER, SELFPAY | PROVIDERS: Emergency Provider Emergency Medicine; PCP Internal Medicine; Visit Provider Radiology Diagnostic Radiology | DX: R22.31 Localized swelling, mass and lump, right upper limb (principal); W22.8XXA Striking against or struck by other objects, initial encounter | CPT/HCPCS: 73080 ==

== ENCOUNTER 2025-06-23 12:54 | Outpatient (AMB) | payer OTHER, SELFPAY ==
--- NOTE | 2025-06-23 13:19 | A.OFFVIS_ITS ---
Vital Signs 06/23/25 13:21 Height 6 ft Weight 195 lb BMI 26.4 Intake Visit Reasons: ER follow up RT elbow injury Intake Note: Ghislaine is a 60 year old left hand dominant male who presents today as a new patient for an evaluation of right elbow, DOI 06/19/25. Patient reports that he had a ruptured bursa that was drained about a year ago at [facility]. Patient states a lump that has been present the size of half a gulf ball, he hit his elbow this weekend causing an increase of size. He presented to [facility] that same day due to swelling and tingling/cold sensation in his hand. He was prescribed antibiotics and referred to orthopedics. Today he continues to have tenderness on his elbow. Allergies No Known Allergies Allergy (Verified 06/23/25 13:28) Medication List - Last Reconciled 06/23/25 by Char Estes PA-C cephalexin 500 mg PO BID 7 days ibuprofen 800 mg PO DAILY lisinopril 10 mg PO DAILY 90 days metoprolol succinate ER 100 mg PO DAILY 90 days HPI HPI ER follow up RT elbow injury: Details: 60-year-old gentleman presents to the office today for an injury he sustained to his right elbow on 06/19/2025. 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 He immediately developed pain and swelling along with redness. Was seen in the emergency department where they placed him on antibiotics which he is currently still taking. He states a year ago he had a similar injury and he had the elbow aspirated. He states since that time it was aspirated it has never been the same he has always had some sort of swelling. He denies pain. [facility] Medical History Hypertrophic cardiomyopathy Overweight (BMI 25.0-29.9) Arthritis Surgical History Hx of ventricular septal myectomy History of colonoscopy History of rotator cuff surgery History of right knee surgery History of left knee surgery Family History Mother No problems noted. Father Amyloidosis Social History (Updated 06/23/25 @ 13:21 by TIGRE Peck) Household Members Other:: grandson Housing: House Are you a primary child caregiver private home to a significant other at home: Yes Do you presently have visiting nurse or other home services: No Alcohol intake: former Patient Tobacco Use Status: Never used Tobacco e-Cigarette/Vaping Use: Never Used Second Hand Smoke Exposure: Yes Substance Use Type: Marijuana service: No Current occupational status: employed Current occupation: construction, left hand dominant Cognitive needs: No Hearing needs: No Vision needs: No Review of Systems Const All systems reviewed & are unremarkable except as noted in HPI and below Physical Exam Vital Signs: BMI result Body Mass Index 26.4 Const General: cooperative and no acute distress Orientation/consciousness: patient oriented x3 Resp Effort & Inspection: normal respiratory effort and able to speak in complete sentences Cardio Peripheral pulses: Peripheral pulses 2+ throughout Neuro General: patient oriented x3 Extrem Other: Right elbow normal to inspection he does have swelling over the olecranon bursa without redness, no pain or decreased range of motion. Neurovascularly intact. Assessment & Plan Assessment & Plan (1) Olecranon bursitis, right elbow: Code(s): M70.21 - Olecranon bursitis, right elbow Category: Medical Plan: I explained to the patient this is treated conservatively with compression and modifying activity. He was given an Bonilla wrap today to place around the elbow and will continue to apply pressure for the next few days. I did explain this can take several weeks to fully resolve. Once he has completed the antibiotics if he develops redness pain or fevers he should be seen in the emergency department for re-evaluation. Otherwise the patient can return as needed. Coding Level of Care Code New Pt Level 3 (57993) Complex EM visit Add On G2211 Diagnoses Olecranon bursitis, right elbow M70.21
[2025-06-23 13:21] VITALS: BMI 26.4
--- OUTSIDE RECORDS SUMMARY | 2025-06-23 15:16 | XMS_ITS | Clinical Summary ---
Author Organization [facility] Address [address] [facility] [address] [place] [phone] Phone Care Team Providers Care Forest Pathologist Name Role Phone Chan Phillips MD Primary Care Provider [phone] Allergies No known active allergies Medications oxyCODONE [...] 2015 ZOSTER VACCINES (1 of 2) 2015 INFLUENZA VACCINE (#1) 2025 10/20/2020 COVID-19 VACCINE ( - 2023-2 5 season) 2025 RSV VACCINE (1 - 1-dose 75+ series) [...] Insurance [place] [address] [place], [place] [id number] [place], [place] [id number] Care Teams Forest Pathologist Relationship Specialty Start Date End Date Chan Phillips MD [address] [place] [address] [place] [address] PCP - General Internal Medicine 03/27/20 Additional Source Comments The information contained in this document represents components of the legal health record. It is not the complete legal health record.[facility]
== END 2025-06-23 13:32 | disposition home or self-care (01) ==
LOC: HO.HOS 12:55
PROVIDERS: PCP Internal Medicine; Visit Provider Physician Assistant
DX: M70.21 Olecranon bursitis, right elbow (principal)
CPT/HCPCS: 99203; G2211